=== PATIENT | female | born 1990 | race Hispanic/Latino ===

== ENCOUNTER → 2025-05-03 | Day surgery (SDC) | payer BC ==
[~2025-05-03] MED LIST: LACTATED RINGER'S 1,000 ML ONE; LIDOCAINE HCL 2% LOCAL INJ 5 ML SDV VIAL INJ ONE; MIDAZOLAM HCL 2 MG/2 ML VIAL ONE; MOUNJARO5 MG/0.5 M SC; PROPOFOL IV EMULSION 10 MG/ML 20 ML VIAL ONE
[2025-05-03 10:45] VITALS: TEMP 97.8
[2025-05-03 11:00] VITALS: BP 119/82; PULSE 82; RESP 16; O2SAT 99
== END | disposition home or self-care (01) ==
LOC: OR 08:36
PROVIDERS: ATTEND Internal Medicine Gastroenterology
DX: K64.8 Other hemorrhoids (principal); K57.30 Diverticulosis of large intestine without perforation or abscess without bleeding; I10 Essential (primary) hypertension; Z79.85 Long-term (current) use of injectable non-insulin antidiabetic drugs; Z01.810 Encounter for preprocedural cardiovascular examination; Z01.818 Encounter for other preprocedural examination
CPT/HCPCS: 45380; 81025; 93005; J2003; J2250; J2704; J7121; 45378